=== PATIENT | female | born 1945 | race Caucasian/White ===

== ENCOUNTER 2020-10-24 11:13 | Inpatient (IN) | payer MEDICARE ==
[2020-10-24] MEDS ORDERED: ZOSYN 3.375GM+NS 50ML 50 ML IV ONE (11:47)
[2020-10-24] MEDS ORDERED: 0.9%NACL 1000ML 1,000 ML IV ONE ×2 (11:50→15:11)
[2020-10-24 11:53] LABS: BASOPHILS % (AUTO) 0.3 % (0.0-5.0); EOSINOPHILS % (AUTO) 0.1 % (0.0-8.0); HEMATOCRIT 37.2 % (36-48); LYMPHOCYTES % (AUTO) 2.1 % (21.0-51.0); MEAN CORPUSCULAR HEMOGLOBIN 29.4 pg (27.0-33.0); MEAN CORPUSCULAR HGB CONC 35.2 g/dL (32.0-36.0); MEAN CORPUSCULAR VOLUME 83.4 fL (79-99); MONOCYTES % (AUTO) 3.3 % (3.0-13.0); NEUTROPHILS % (AUTO) 93.4 % (40.0-77.0); PLATELET COUNT (AUTO) 242 K/uL (130-400); RED BLOOD CELL COUNT(AUTO) 4.46 MIL/uL (4.00-5.50); RED CELL DISTRIBUTION WIDTH 13.2 % (11.0-15.5); WHITE BLOOD COUNT (AUTO) 14.2 K/uL (4.8-10.8)
[2020-10-24 11:59] LABS: INR 1.08 (0.85-1.15); PROTHROMBIN TIME 11.7 SEC (9.6-11.6)
[2020-10-24 12:00] LABS: PARTIAL THROMBOPLASTIN TIME 27.9 SEC (26.3-35.5)
[2020-10-24 12:09] LABS: ALANINE AMINOTRANSFERASE 34 U/L (12-78); ALBUMIN 3.1 g/dL (3.5-5.0); ASPARTATE AMINOTRANSFERASE 29 U/L (10-37); BILIRUBIN,TOTAL 1.1 mg/dL (0.2-1.0); CARBON DIOXIDE 24 mmol/L (21-32); CHLORIDE 94 mmol/L (101-111); CREATINE KINASE, TOTAL 92 U/L (21-232); CREATININE 2.3 mg/dL (0.5-1.5); GLOMERULAR FILTR. RATE CALC 22 mL/min (>60); GLUCOSE,RANDOM 111 mg/dL (70-105); MYOGLOBIN 193 ng/mL (10-92); SODIUM SERUM 131 mmol/L (136-145); TOTAL PROTEIN, SERUM 7.6 g/dL (6.0-8.3); TROPONIN I < 0.04 ng/mL (0.00-0.06); UREA NITROGEN, BLOOD 31 mg/dL (7-18)
[2020-10-24 12:10] LABS: POTASSIUM 2.9 mmol/L (3.5-5.1)
[2020-10-24 12:24] LABS: B-TYPE NATRIURETIC PEPTIDE 140 pg/mL (0-100)
[2020-10-24 12:51] LABS: APPEARANCE,URINE Turbid (CLEAR); BILIRUBIN,URINE Small (NEGATIVE); COLOR,URINE Dark Yellow (YELLOW); GLUCOSE, URINE (UA) Negative (NEGATIVE); KETONES,URINE Trace mg/dL (NEGATIVE); LEUKOCYTE ESTERASE ,URINE Moderate (NEGATIVE); NITRATE,URINE Negative (NEGATIVE); OCCULT BLOOD,URINE Small (NEGATIVE); PROTEIN,URINE POS 2+ mg/dL (NEGATIVE)
[2020-10-24 12:58] LABS: ABG OXYGEN SATURATION 98.3 % (95.0-99.0); ABG PCO2 26 mmHg (32-45)
[2020-10-24 13:15] LABS: AMORPHOUS SEDIMENT,UR Moderate /LPF (None Seen); BACTERIA,URINE Moderate /HPF (None Seen); RENAL EPITHELIAL CELLS,URINE Few /HPF (None Seen); TRANSITIONAL EPI CELLS,URINE Moderate /HPF (None Seen); WBC,URINE 51-100 /HPF (0-1)
[2020-10-24] MEDS ORDERED: KETOROLAC 15MG/ML VIAL (15MG/ML) ONE (15:14)
[2020-10-24] MEDS ORDERED: GUAIFENESIN-DM 200/20 MG 10 ML PO PRN (16:00)
[2020-10-24] MEDS ORDERED: CEFTRIAXONE 1G VIAL IVP SCH (16:00)
[2020-10-24] MEDS ORDERED: AZITHROMYCIN 500MG+NS 250ML 250 ML IV SCH (16:00)
[2020-10-24] MEDS ORDERED: AZITHROMYCIN 500MG+NS 250ML 250 ML IV ONE (16:09)
[2020-10-24] MEDS ORDERED: CEFTRIAXONE 1G VIAL ONE (16:09)
[2020-10-24] MEDS: 0.9%NACL 1000ML 1,000 ML IV SCH (16:55)
[2020-10-24 17:06] VITALS: BP 113/55
[2020-10-24] MEDS ORDERED: ATOR20TA65 PO (17:20)
[2020-10-24] MEDS ORDERED: CELE-84 PO (17:20)
[2020-10-24] MEDS ORDERED: LEVO75CA5 PO (17:20)
[2020-10-24] MEDS ORDERED: TRIA1TAB5 PO (17:20)
[2020-10-24] MEDS ORDERED: MORPHINE 2 MG SYG IVP PRN (17:30)
[2020-10-24 19:06] VITALS: BP 111/52
[2020-10-24 19:18] LABS: HEMATOCRIT 34.3 % (36-48); MEAN CORPUSCULAR HEMOGLOBIN 29.3 pg (27.0-33.0); MEAN CORPUSCULAR HGB CONC 34.1 g/dL (32.0-36.0); RED BLOOD CELL COUNT(AUTO) 3.99 MIL/uL (4.00-5.50); RED CELL DISTRIBUTION WIDTH 13.3 % (11.0-15.5); WHITE BLOOD COUNT (AUTO) 10.2 K/uL (4.8-10.8)
[2020-10-24 19:38] LABS: ALBUMIN 2.6 g/dL (3.5-5.0); BILIRUBIN,TOTAL 0.6 mg/dL (0.2-1.0); TOTAL PROTEIN, SERUM 6.6 g/dL (6.0-8.3)
[2020-10-24] MEDS: ATORVASTATIN 20 MG TABLET PO SCH (19:58)
[2020-10-24] MEDS: ONDANSETRON 4MG INJ IVP PRN (19:58)
[2020-10-24] MEDS: POTASSIUM CHLORIDE 20MEQ/100ML 100 ML IV PRN (19:59)
[2020-10-24] MEDS: LIDOCAINE HCL-MPF 1% 2ML VIAL IV PRN (19:59)
[2020-10-24] MEDS: HYDROMORPHONE 1 MG INJ IVP PRN (20:05)
[2020-10-24] MEDS: ZOSYN 3.375GM+NS 50ML 50 ML IV SCH (20:05)
[2020-10-24 23:51] VITALS: BP 96/50
[2020-10-25 03:52] VITALS: BP 102/66
[2020-10-25] MEDS: ZOSYN 3.375GM+NS 50ML 50 ML IV SCH ×3 (04:00→20:00)
[2020-10-25] MEDS: ACETAMINOPHEN 325 MG TAB PO PRN (04:01)
[2020-10-25 05:22] LABS: BASOPHILS % (AUTO) 0.2 % (0.0-5.0); HEMATOCRIT 30.2 % (36-48); LYMPHOCYTES % (AUTO) 4.2 % (21.0-51.0); MEAN CORPUSCULAR HEMOGLOBIN 29.2 pg (27.0-33.0); MEAN CORPUSCULAR HGB CONC 34.4 g/dL (32.0-36.0); MEAN CORPUSCULAR VOLUME 84.8 fL (79-99); MONOCYTES % (AUTO) 4.3 % (3.0-13.0); NEUTROPHILS % (AUTO) 90.6 % (40.0-77.0); PLATELET COUNT (AUTO) 212 K/uL (130-400); RED BLOOD CELL COUNT(AUTO) 3.56 MIL/uL (4.00-5.50); RED CELL DISTRIBUTION WIDTH 13.4 % (11.0-15.5); WHITE BLOOD COUNT (AUTO) 8.4 K/uL (4.8-10.8)
[2020-10-25 05:48] LABS: ALBUMIN 2.2 g/dL (3.5-5.0); BILIRUBIN,TOTAL 0.6 mg/dL (0.2-1.0); CREATININE 1.8 mg/dL (0.5-1.5)
[2020-10-25 05:54] LABS: POTASSIUM 2.7 mmol/L (3.5-5.1)
[2020-10-25] MEDS ORDERED: AZITHROMYCIN 500MG+NS 250ML 250 ML IV SCH (06:00)
[2020-10-25] MEDS: LEVOTHYROXINE 75 MCG TABLET PO SCH (06:37)
[2020-10-25] MEDS: POTASSIUM CHLORIDE 20MEQ/100ML 100 ML IV PRN ×2 (06:37→12:51)
[2020-10-25] MEDS: LIDOCAINE HCL-MPF 1% 2ML VIAL IV PRN ×2 (06:37→12:52)
[2020-10-25 07:09] VITALS: BP 96/54
[2020-10-25] MEDS ORDERED: CELECOXIB 200 MG CAP PO SCH (09:00)
[2020-10-25] MEDS ORDERED: TRIAMTEREN/HCTZ 37.5/25 MG 1 TAB TAB PO SCH (09:00)
[2020-10-25] MEDS: CEFTRIAXONE 1G VIAL IVP SCH (09:24)
[2020-10-25] MEDS: ENOXAPARIN SODIUM 30 MG/0.3 ML SQ SCH (09:25)
[2020-10-25] MEDS: 0.9%NACL 1000ML 1,000 ML IV SCH ×2 (09:25→17:37)
[2020-10-25] MEDS: HYDROCODONE/ACETAMINOPHEN 5/325 MG TAB PO PRN (09:31)
[2020-10-25] MEDS: POTASSIUM CHLORIDE 10% ELIXIR 20 MEQ/15 ML UDCUP PO PRN ×2 (10:37→11:55)
[2020-10-25 11:49] VITALS: BP 110/82
[2020-10-25] MEDS: ONDANSETRON 4MG INJ IVP PRN ×2 (12:40→20:00)
[2020-10-25] MEDS: HYDROMORPHONE 1 MG INJ IVP PRN ×2 (12:50→20:01)
[2020-10-25 16:55] VITALS: BP 99/61
[2020-10-25 19:00] VITALS: BP 102/67
[2020-10-25] MEDS: ATORVASTATIN 20 MG TABLET PO SCH (20:00)
[2020-10-26 04:00] VITALS: BP 116/60
[2020-10-26] MEDS: 0.9%NACL 1000ML 1,000 ML IV SCH ×2 (04:40→20:19)
[2020-10-26] MEDS: ZOSYN 3.375GM+NS 50ML 50 ML IV SCH (04:40)
[2020-10-26 05:22] LABS: BASOPHILS % (AUTO) 0.4 % (0.0-5.0); EOSINOPHILS % (AUTO) 0.5 % (0.0-8.0); HEMATOCRIT 31.2 % (36-48); LYMPHOCYTES % (AUTO) 8.8 % (21.0-51.0); MEAN CORPUSCULAR HEMOGLOBIN 29.2 pg (27.0-33.0); MEAN CORPUSCULAR HGB CONC 34.3 g/dL (32.0-36.0); MONOCYTES % (AUTO) 7.6 % (3.0-13.0); NEUTROPHILS % (AUTO) 81.7 % (40.0-77.0); PLATELET COUNT (AUTO) 238 K/uL (130-400); RED BLOOD CELL COUNT(AUTO) 3.67 MIL/uL (4.00-5.50); RED CELL DISTRIBUTION WIDTH 14.2 % (11.0-15.5); WHITE BLOOD COUNT (AUTO) 7.9 K/uL (4.8-10.8)
[2020-10-26 05:39] LABS: CREATININE 1.3 mg/dL (0.5-1.5)
[2020-10-26 05:43] LABS: POTASSIUM 2.8 mmol/L (3.5-5.1)
[2020-10-26] MEDS: HYDROCODONE/ACETAMINOPHEN 5/325 MG TAB PO PRN ×2 (05:57→11:09)
[2020-10-26] MEDS: LEVOTHYROXINE 75 MCG TABLET PO SCH (05:57)
[2020-10-26] MEDS: ONDANSETRON 4MG INJ IVP PRN ×4 (05:57→20:19)
[2020-10-26] MEDS: POTASSIUM CHLORIDE 20MEQ/100ML 100 ML IV PRN (05:58)
[2020-10-26] MEDS: LIDOCAINE HCL-MPF 1% 2ML VIAL IV PRN (05:58)
[2020-10-26 07:55] VITALS: BP 93/59
[2020-10-26] MEDS: CEFTRIAXONE 1G VIAL IVP SCH (08:05)
[2020-10-26] MEDS: ENOXAPARIN SODIUM 30 MG/0.3 ML SQ SCH (08:06)
[2020-10-26 12:00] VITALS: BP 121/68
[2020-10-26] MEDS: HYDROMORPHONE 1 MG INJ IVP PRN (14:59)
[2020-10-26 15:53] VITALS: BP 138/74
[2020-10-26 19:55] VITALS: BP 117/66
[2020-10-26] MEDS: ATORVASTATIN 20 MG TABLET PO SCH (20:19)
[2020-10-26] MEDS: FAMOTIDINE 20MG TAB PO SCH (20:19)
[2020-10-26 23:44] VITALS: BP 117/62
[2020-10-27] MEDS: HYDROMORPHONE 1 MG INJ IVP PRN ×4 (02:46→23:34)
[2020-10-27] MEDS: ONDANSETRON 4MG INJ IVP PRN ×3 (02:48→22:53)
[2020-10-27 03:57] VITALS: BP 101/53
[2020-10-27 05:16] LABS: BASOPHILS % (AUTO) 0.5 % (0.0-5.0); EOSINOPHILS % (AUTO) 1.2 % (0.0-8.0); HEMATOCRIT 29.6 % (36-48); LYMPHOCYTES % (AUTO) 15.2 % (21.0-51.0); MEAN CORPUSCULAR HEMOGLOBIN 27.8 pg (27.0-33.0); MEAN CORPUSCULAR HGB CONC 32.8 g/dL (32.0-36.0); MEAN CORPUSCULAR VOLUME 84.8 fL (79-99); MONOCYTES % (AUTO) 10.7 % (3.0-13.0); PLATELET COUNT (AUTO) 247 K/uL (130-400); RED BLOOD CELL COUNT(AUTO) 3.49 MIL/uL (4.00-5.50); RED CELL DISTRIBUTION WIDTH 14.6 % (11.0-15.5); WHITE BLOOD COUNT (AUTO) 8.2 K/uL (4.8-10.8)
[2020-10-27 05:24] LABS: CREATININE 1.1 mg/dL (0.5-1.5)
[2020-10-27 05:36] LABS: POTASSIUM 2.6 mmol/L (3.5-5.1)
[2020-10-27] MEDS: LEVOTHYROXINE 75 MCG TABLET PO SCH (06:23)
[2020-10-27 08:07] VITALS: BP 113/62
[2020-10-27] MEDS: ENOXAPARIN SODIUM 30 MG/0.3 ML SQ SCH (08:25)
[2020-10-27] MEDS: KCL 20 MEQ ERTAB PO PRN ×4 (08:49→17:07)
[2020-10-27] MEDS: CEFTRIAXONE 1G VIAL IVP SCH (08:57)
[2020-10-27] MEDS: 0.9%NACL 1000ML 1,000 ML IV SCH (10:40)
[2020-10-27 11:50] VITALS: BP 118/91
[2020-10-27] MEDS ORDERED: ONDANSETRON 4MG INJ ONE (14:46)
[2020-10-27 15:54] VITALS: BP 125/64
[2020-10-27] MEDS ORDERED: PROMETHAZINE HCL 25 MG/ML 1ML AMPULE IM SCH (16:30)
[2020-10-27 19:08] VITALS: BP 109/56
[2020-10-27] MEDS: FAMOTIDINE 20MG TAB PO SCH (21:59)
[2020-10-27] MEDS: ATORVASTATIN 20 MG TABLET PO SCH (21:59)
[2020-10-27 23:02] VITALS: BP 138/74
[2020-10-27] MEDS: HYDROCODONE/ACETAMINOPHEN 5/325 MG TAB PO PRN (23:35)
[2020-10-28] MEDS: 0.9%NACL 1000ML 1,000 ML IV SCH
[2020-10-28 04:14] VITALS: BP 133/55
[2020-10-28 04:57] LABS: BASOPHILS % (AUTO) 0.6 % (0.0-5.0); EOSINOPHILS % (AUTO) 3.1 % (0.0-8.0); HEMATOCRIT 29.8 % (36-48); LYMPHOCYTES % (AUTO) 21.5 % (21.0-51.0); MEAN CORPUSCULAR HEMOGLOBIN 29.1 pg (27.0-33.0); MEAN CORPUSCULAR HGB CONC 34.2 g/dL (32.0-36.0); MEAN CORPUSCULAR VOLUME 84.9 fL (79-99); MONOCYTES % (AUTO) 8.7 % (3.0-13.0); NEUTROPHILS % (AUTO) 61.6 % (40.0-77.0); PLATELET COUNT (AUTO) 276 K/uL (130-400); RED BLOOD CELL COUNT(AUTO) 3.51 MIL/uL (4.00-5.50); RED CELL DISTRIBUTION WIDTH 14.9 % (11.0-15.5)
[2020-10-28 05:09] LABS: CREATININE 1.2 mg/dL (0.5-1.5); POTASSIUM 3.1 mmol/L (3.5-5.1)
[2020-10-28] MEDS: LEVOTHYROXINE 75 MCG TABLET PO SCH (05:54)
[2020-10-28 08:00] VITALS: BP 120/59
[2020-10-28] MEDS: ONDANSETRON 4MG INJ IVP PRN ×3 (09:40→20:10)
[2020-10-28] MEDS: ENOXAPARIN SODIUM 30 MG/0.3 ML SQ SCH (09:41)
[2020-10-28] MEDS: KCL 20 MEQ ERTAB PO PRN ×3 (09:44→13:59)
[2020-10-28] MEDS: CEFTRIAXONE 1G VIAL IVP SCH (09:54)
[2020-10-28] MEDS: HYDROCODONE/ACETAMINOPHEN 5/325 MG TAB PO PRN ×3 (11:48→20:10)
[2020-10-28] MEDS: ACETAMINOPHEN 325 MG TAB PO PRN ×3 (11:52→22:52)
[2020-10-28 12:00] VITALS: BP 152/62
[2020-10-28 16:00] VITALS: BP 149/68
[2020-10-28 19:12] VITALS: BP 115/63
[2020-10-28] MEDS: FAMOTIDINE 20MG TAB PO SCH (20:10)
[2020-10-28] MEDS: ATORVASTATIN 20 MG TABLET PO SCH (20:10)
[2020-10-28 22:41] VITALS: BP 137/68
[2020-10-29] MEDS: ONDANSETRON 4MG INJ IVP PRN ×2 (00:30→05:38)
[2020-10-29] MEDS: HYDROCODONE/ACETAMINOPHEN 5/325 MG TAB PO PRN ×2 (00:32→05:37)
[2020-10-29 03:08] VITALS: BP 110/61
[2020-10-29 05:04] LABS: BASOPHILS % (AUTO) 0.7 % (0.0-5.0); EOSINOPHILS % (AUTO) 3.9 % (0.0-8.0); HEMATOCRIT 29.5 % (36-48); LYMPHOCYTES % (AUTO) 31.4 % (21.0-51.0); MEAN CORPUSCULAR HEMOGLOBIN 29.1 pg (27.0-33.0); MEAN CORPUSCULAR HGB CONC 33.9 g/dL (32.0-36.0); MEAN CORPUSCULAR VOLUME 85.8 fL (79-99); MONOCYTES % (AUTO) 6.1 % (3.0-13.0); NEUTROPHILS % (AUTO) 52.5 % (40.0-77.0); PLATELET COUNT (AUTO) 313 K/uL (130-400); RED BLOOD CELL COUNT(AUTO) 3.44 MIL/uL (4.00-5.50); RED CELL DISTRIBUTION WIDTH 15.2 % (11.0-15.5)
[2020-10-29 05:22] LABS: CREATININE 0.9 mg/dL (0.5-1.5); POTASSIUM 3.3 mmol/L (3.5-5.1)
[2020-10-29 05:34] LABS: B-TYPE NATRIURETIC PEPTIDE 355 pg/mL (0-100)
[2020-10-29] MEDS: LEVOTHYROXINE 75 MCG TABLET PO SCH (05:37)
[2020-10-29] MEDS: KCL 20 MEQ ERTAB PO PRN (05:37)
[2020-10-29 08:19] VITALS: BP 128/59
[2020-10-29] MEDS: CEFTRIAXONE 1G VIAL IVP SCH (09:38)
[2020-10-29] MEDS: ENOXAPARIN SODIUM 30 MG/0.3 ML SQ SCH (09:38)
[2020-10-29] MEDS ORDERED: POTASSIUM CHLORIDE 10MEQ SR TAB PO SCH (11:00)
[2020-10-29 11:48] VITALS: BP 126/69
[2020-10-29] MEDS ORDERED: LEVO500T90 PO (16:25)
== END 2020-10-29 18:38 | disposition home or self-care (01) | DRG 872 ==
LOC: EDH 11:13 → EDHIP 12:41 → 4BH 16:32
PROVIDERS: ADMIT Family Medicine; ATTEND Family Medicine
DX: A41.51 Sepsis due to Escherichia coli [E. coli] (principal); N17.9 Acute kidney failure, unspecified; E87.1 Hypo-osmolality and hyponatremia; N12 Tubulo-interstitial nephritis, not specified as acute or chronic; E03.9 Hypothyroidism, unspecified; E78.5 Hyperlipidemia, unspecified; M19.90 Unspecified osteoarthritis, unspecified site; E87.6 Hypokalemia; I10 Essential (primary) hypertension; G89.29 Other chronic pain; J45.909 Unspecified asthma, uncomplicated; B96.89 Other specified bacterial agents as the cause of diseases classified elsewhere; E66.9 Obesity, unspecified; Z20.822 Contact with and (suspected) exposure to COVID-19; Z88.6 Allergy status to analgesic agent; Z88.5 Allergy status to narcotic agent; Z88.8 Allergy status to other drugs, medicaments and biological substances; Z85.828 Personal history of other malignant neoplasm of skin; Z90.711 Acquired absence of uterus with remaining cervical stump; Z88.2 Allergy status to sulfonamides
CPT/HCPCS: 36415; 36600; 71045; 71250; 74176; 80048; 80053; 81001; 82550; 82803; 83605; 83735; 83874; 83880; 84132; 84145; 84484; 85025; 85027; 85610; 85730; 86140; 86900; 86901; 87040; 87077; 87088; 87186; 87426; 87804; 93005; 99291; G0378; J0456; J0696; J1170; J1650; J1885; J2405; J2543; J2550; J3480; J3490; J7030; U0003